=== PATIENT | male | born 1955 | race Caucasian/White ===

== ENCOUNTER 2017-12-22 11:53 | Day surgery (SDC) | payer OTHER ==
[2017-12-22] MEDS ORDERED: LIDOCAINE 2% (SDV) 5 ML INJ (13:43)
[2017-12-22] MEDS ORDERED: PROPOFOL 60 ML (13:43)
[2017-12-22] MEDS ORDERED: PROPOFOL 20 ML (14:07)
== END 2017-12-22 16:27 | disposition home or self-care (01) ==
LOC: GIL 11:53
DX: R19.4 Change in bowel habit (principal); K21.9 Gastro-esophageal reflux disease without esophagitis; K44.9 Diaphragmatic hernia without obstruction or gangrene; K29.60 Other gastritis without bleeding; K64.8 Other hemorrhoids; E78.5 Hyperlipidemia, unspecified; J44.9 Chronic obstructive pulmonary disease, unspecified
CPT/HCPCS: 43239; 87081